=== PATIENT | female | born 1995 | race Two or more races ===

== ENCOUNTER → 2020-07-25 | Outpatient (CLI) | payer OTHER | END | disposition home or self-care (01) | LOC: PRENATAL 09:00 | PROVIDERS: ATTEND Obstetrics & Gynecology Maternal & Fetal Medicine | DX: O35.0XX1 Maternal care for (suspected) central nervous system malformation in fetus, fetus 1 (principal); O35.3XX1 Maternal care for (suspected) damage to fetus from viral disease in mother, fetus 1; O98.512 Other viral diseases complicating pregnancy, second trimester; O32.8XX1 Maternal care for other malpresentation of fetus, fetus 1; Z36.89 Encounter for other specified antenatal screening; Z3A.26 26 weeks gestation of pregnancy ==

== ENCOUNTER 2024-09-07 20:35 | Emergency (ER) | payer OTHER ==
[~2024-09-07] VITALS: Ht 165.1 cm; Wt 86.2 kg
[2024-09-07] MEDS ORDERED: 0.9 % SODIUM CHLORIDE 1,000 ML IV STA (21:56)
[2024-09-07] MEDS ORDERED: FAMOTIDINE/PF 20 MG in 0.9 % SODIUM CHLORIDE 8 ML IV PUSH STA (21:57)
[2024-09-07] MEDS ORDERED: ONDANSETRON HCL 2 MG/ML VIAL IV STA (21:57)
[2024-09-07] MEDS ORDERED: FAMOTIDINE/PF 20 MG/2 ML VIAL ONE (21:59)
[2024-09-07] MEDS ORDERED: ONDANSETRON HCL 2 MG/ML VIAL ONE (21:59)
[2024-09-07 23:40] LABS: PH,URINE 5.5 (5.0-8.0); URINE APPEARANCE Cloudy; URINE BILIRRUBIN Negative (NEGATIVE); URINE BLOOD Negative; URINE COLOR Dark Yellow; URINE GLUCOSE Negative (NEGATIVE); URINE KETONE 15 (NEGATIVE); URINE LEUKOCYTE Moderate; URINE NITRATE Negative; URINE PROTEIN Trace (NEGATIVE); URINE UROBILINOGEN 0.2 E.U./dl
[2024-09-07 23:44] LABS: URINE BACTERIA 4198.1 uL (0.0-1933); URINE EPITHELIAL CELLS 59.6 uL (0.0-38.8); URINE RBC 29.1 uL (0.0-20.8); URINE WBC 136.9 uL (0.0-23.2)
[2024-09-07 23:48] LABS: URINE CAST 0.44 uL (0.0-1.40)
[2024-09-07 23:59] LABS: BASO % 0.2 % (0.1-1.2); EOS # 0.05 (0.04-0.54); EOS % 0.4 % (0.7-7.0); HEMATOCRIT 43.6 % (34.1-44.9); HEMOGLOBIN 14.4 g/dL (11.2-15.7); LYMPH # 2.63 (1.18-3.74); LYMPH % 23.6 % (19.3-53.1); MEAN CORPUSCULAR HEMOGLOBIN 27.5 pg (25.6-32.2); MONO # 0.61 (0.24-0.82); MONO % 5.5 % (4.7-12.5); NEUT # 7.81 (1.56-6.13); NEUT % 70.1 % (34.0-71.1); PLATELET COUNT 315 K/uL (163-369); RED BLOOD COUNT 5.24 M/uL (3.93-5.22); RED CELL DISTRIBUTION WIDTH 13.2 % (11.6-14.4)
[2024-09-08 01:07] LABS: URINE CRYSTALS MANY /HPF; URINE MUCUS SCANT
[2024-09-08 01:22] LABS: CREATININE SERUM 0.68 mg/dL (0.55-1.02); GFR 101.59; POTASSIUM 3.72 mEq/L (3.5-5.1)
[2024-09-08] MEDS ORDERED: ZOFRAN8 MG PO (02:24)
[2024-09-08] MEDS ORDERED: PEPCID40 MG PO (02:24)
== END 2024-09-08 02:39 ==
LOC: ER 21:38
PROVIDERS: Emergency Medicine
DX: K52.89 Other specified noninfective gastroenteritis and colitis (principal); N39.0 Urinary tract infection, site not specified